=== PATIENT | male | born 1970 | race Caucasian/White ===

== ENCOUNTER 2016-04-26 14:36 | Outpatient (CLI) | payer OTHER | END 2016-04-26 14:37 | disposition home or self-care (01) | DX: G47.61 Periodic limb movement disorder (principal); R06.83 Snoring ==

== ENCOUNTER 2016-05-24 22:23 | Outpatient (CLI) | payer OTHER | END 2016-05-24 22:24 | disposition home or self-care (01) | DX: G47.33 Obstructive sleep apnea (adult) (pediatric) (principal); G47.61 Periodic limb movement disorder; Z68.34 Body mass index [BMI] 34.0-34.9, adult ==

== ENCOUNTER 2016-07-12 08:57 | Outpatient (CLI) | payer OTHER | END 2016-07-12 08:58 | disposition home or self-care (01) | DX: G47.33 Obstructive sleep apnea (adult) (pediatric) (principal) ==

== ENCOUNTER 2016-07-20 09:29 | Day surgery (SDC) | payer OTHER ==
[2016-07-20] MEDS ORDERED: LACTATED RINGERS 1,000 ML IV ONE ×4 (10:38→14:46)
[2016-07-20] MEDS ORDERED: fentaNYL 100 MCG/2 ML VIAL IVP ONE (12:30)
[2016-07-20] MEDS ORDERED: GLYCOPYRROLATE 1 MG/5 ML VIAL IVP ONE (12:30)
[2016-07-20] MEDS ORDERED: ePHEDrine 50 MG/ML AMP IVP ONE (12:30)
[2016-07-20] MEDS ORDERED: ROCURONIUM 50 MG/5 ML VIAL IVP ONE (12:30)
[2016-07-20] MEDS ORDERED: MIDAZOLAM 2 MG/2 ML VIAL IVP ONE (12:30)
[2016-07-20] MEDS ORDERED: ONDANSETRON 4 MG/2 ML VIAL IVP ONE (12:30)
[2016-07-20] MEDS ORDERED: LIDOCAINE-MPF 2% 5 ML VIAL IM ONE (12:30)
[2016-07-20] MEDS ORDERED: DEXAMETHASONE 4 MG/ML VIAL IVP ONE (12:30)
[2016-07-20] MEDS ORDERED: SUCCINYLCHOLINE 200 MG/10 ML VIAL IVP ONE (12:30)
[2016-07-20] MEDS ORDERED: ceFAZolin 1 GM VIAL IV ONE (12:30)
[2016-07-20] MEDS ORDERED: NEOSTIGMINE 1 MG/1 ML 10 ML MDV IVP ONE (12:30)
[2016-07-20] MEDS ORDERED: LIDOCAINE 1%-EPI 1:100000 30 ML MDV SUBQ ONE ×2 (12:43)
[2016-07-20] MEDS ORDERED: BUPIVACAINE 0.5% PF 10 ML VIAL IM ONE ×2 (12:43)
[2016-07-20] MEDS ORDERED: KETOROLAC 15 MG/ML VIAL ONE (14:04)
[2016-07-20] MEDS: HYDROmorphone 1 MG/ML SYRINGE ONE ×4 (14:10→14:40)
[2016-07-20] MEDS ORDERED: oxyCOD/ACETAMIN 5 MG/325 MG TABLET PO ONE ×2 (14:56→15:19)
== END 2016-07-20 09:30 | disposition home or self-care (01) ==
PROC: 0FT44ZZ Resection of Gallbladder, Percutaneous Endoscopic Approach (ICD-10-PCS; principal; 2016-07-20 10:45)
DX: K80.10 Calculus of gallbladder with chronic cholecystitis without obstruction (principal); G47.33 Obstructive sleep apnea (adult) (pediatric); I10 Essential (primary) hypertension; K21.9 Gastro-esophageal reflux disease without esophagitis; J30.2 Other seasonal allergic rhinitis; F17.210 Nicotine dependence, cigarettes, uncomplicated
CPT/HCPCS: 47562; A9270; J1170; J7120

== ENCOUNTER 2016-08-16 09:50 | Outpatient (CLI) | payer OTHER | END 2016-08-16 09:51 | disposition home or self-care (01) | DX: G47.33 Obstructive sleep apnea (adult) (pediatric) (principal) ==

== ENCOUNTER 2016-10-04 10:33 | Outpatient (CLI) | payer OTHER | END 2016-10-04 10:34 | disposition home or self-care (01) | LOC: SC 10:33 | PROVIDERS: ATTEND Nurse Practitioner Family | DX: G47.33 Obstructive sleep apnea (adult) (pediatric) (principal) | CPT/HCPCS: 99212; 99214 ==